=== PATIENT | male | born 1975 | race Caucasian/White ===

== ENCOUNTER 2017-09-28 19:41 | Emergency (ER) | payer OTHER ==
[~2017-09-28] VITALS: Ht 177.8 cm; Wt 95.3 kg
[2017-09-28 20:00] VITALS: BP 157/89
[2017-09-28] MEDS ORDERED: DIAZEPAM 10 MG TABLET PO STA (20:17)
[2017-09-28] MEDS ORDERED: DIAZEPAM 10 MG TABLET ONE (20:24)
[2017-09-28] MEDS ORDERED: IBUPROFEN 600 MG TABLET PO ONE ×2 (20:25→20:30)
== END 2017-09-28 21:45 | disposition home or self-care (01) ==
LOC: ER 19:41
DX: M25.512 Pain in left shoulder (principal); I10 Essential (primary) hypertension; E11.9 Type 2 diabetes mellitus without complications; V43.62XA Car passenger injured in collision with other type car in traffic accident, initial encounter; Y93.89 Activity, other specified; Y92.410 Unspecified street and highway as the place of occurrence of the external cause; Y99.8 Other external cause status
CPT/HCPCS: 71045; 73030; 99284; A4606; Z7610

== ENCOUNTER → 2018-12-27 | Emergency (ER) | payer OTHER ==
[~2018-12-27] VITALS: Ht 180.3 cm; Wt 95.3 kg
--- NOTE | 2018-12-27 16:28 | NUR ---
Patient discharged to home in stable condition. Written and verbal after care instructions given. Patient verbalizes understanding of instruction.
[2018-12-27 16:29] VITALS: BP 141/70
== END | disposition home or self-care (01) ==
LOC: ER 15:55
DX: J70.5 Respiratory conditions due to smoke inhalation (principal); I10 Essential (primary) hypertension; E11.9 Type 2 diabetes mellitus without complications